=== PATIENT | female | born 1995 | race Caucasian/White ===

== ENCOUNTER 2019-07-31 20:12 | Emergency (ER) | payer BC ==
[~2019-07-31] VITALS: Ht 162.6 cm; Wt 62.7 kg
[2019-07-31] MEDS ORDERED: JUNEL FE 1/20 21 TAB PO (20:40)
[2019-07-31 22:04] LABS: HEMATOCRIT 43.1 % (37.0-47.0); HEMOGLOBIN 14.8 g/dl (12.5-16.0); MEAN CELL VOLUME 92 fl (80.0-100.0); MEAN CORPUSCULAR HEMOGLOBIN 32 pg (27.0-31.0); MEAN CORPUSCULAR HGB CONC 34 g/dl (33.0-37.0); MEAN PLATELET VOLUME 10.8 fl (7.4-10.4); PLATELET COUNT 212 K/mm3 (130-400); REDCELL DISTRIBUTION WIDTH-CV 11.8 % (11.5-14.5)
[2019-07-31 22:17] LABS: ALBUMIN 4.9 gm/dL (3.5-5.0); BILIRUBIN,TOTAL 0.8 mg/dL (0.0-1.0); CALCIUM 9.6 mg/dL (8.4-10.2); CREATININE, serum 0.9 (0.52-1.25); POTASSIUM 3.7 mmol/L (3.4-5.0); TOTAL PROTEIN 8.2 gm/dL (6.4-8.2)
[2019-07-31 22:24] LABS: MONOSCREEN NEGATIVE
[2019-07-31 22:27] LABS: LYMPHOCYTE 4 % (20.0-51.0); NEUTROPHILS 93 % (42.0-75.2); PLATELET ESTIMATE NORMAL (NORMAL)
[2019-07-31 22:39] LABS: STREP SCREEN NEGATIVE
[2019-07-31 22:41] LABS: COLLECTION METHOD CLEAN CATCH
[2019-07-31 22:51] LABS: MUCOUS Present /lpf; PH 6 (5-8); SQUAMOUS EPITHELIAL 20-50 /hpf; URINE APPEARANCE Cloudy; URINE BACTERIA Rare /hpf; URINE BILIRUBIN Negative (NEGATIVE); URINE BLOOD Negative (NEGATIVE); URINE COLOR Yellow; URINE GLUCOSE Negative (NEGATIVE); URINE KETONE 2+ (NEGATIVE); URINE LEUKOCYTE ESTERASE Trace (NEGATIVE); URINE NITRATE Negative (NEGATIVE); URINE PROTEIN(semi-quant) 1+ (NEGATIVE); URINE RBC 0-2 /hpf
[2019-07-31] MEDS ORDERED: ZITHROMAX 250M250 MG PO (23:16)
[2019-07-31] MEDS ORDERED: PHENERGAN 25 TA25 MG PO (23:16)
[2019-07-31 23:20] VITALS: BP 118/68; PULSE 96; TEMP 99.7
== END 2019-07-31 23:37 | disposition home or self-care (01) ==
LOC: COL.ER 20:12
PROVIDERS: Emergency Medicine
DX: J03.90 Acute tonsillitis, unspecified (principal)
CPT/HCPCS: J0780; J1100; J1885; J7030